=== PATIENT | male | born 1980 | race Caucasian/White ===

== ENCOUNTER 2021-10-17 15:04 | Outpatient (CLI) | payer OTHER, SELFPAY | END 2021-10-17 23:59 | disposition home or self-care (01) | PROVIDERS: PCP Family Medicine; Visit Provider Otolaryngology Otolaryngology/Facial Plastic Surgery | DX: J02.9 Acute pharyngitis, unspecified (principal) | CPT/HCPCS: 87070; 87635; 87804; U0003; U0005 ==

== ENCOUNTER 2021-12-03 23:00 | Outpatient (REF) | payer OTHER, SELFPAY ==
[2021-12-03 23:01] VITALS: BP 145/95; PULSE 99; RESP 16; TEMP 36.6; O2SAT 99; BMI 38.2
[2021-12-03 23:16] VITALS: PULSE 74; RESP 16; O2SAT 99
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
[2021-12-04 00:54] LABS: HIV - WCH Non-Reactive (Nonreactive); Hepatitis B Surface Antibody Reactive; Hepatitis B Surface Antigen Non-Reactive (Nonreactive); Hepatitis C Antibody Non-Reactive (Nonreactive)
== END 2021-12-03 23:47 | disposition home or self-care (01) ==
LOC: ED 23:00
PROVIDERS: PCP Family Medicine; Visit Provider Emergency Medicine
DX: Z77.21 Contact with and (suspected) exposure to potentially hazardous body fluids (principal); J45.909 Unspecified asthma, uncomplicated
CPT/HCPCS: 86703; 86706; 86803; 87340

== ENCOUNTER 2023-05-15 17:27 | Emergency (ER) | payer OTHER, SELFPAY ==
[2023-05-15 17:28] VITALS: BP 139/80; PULSE 94; RESP 14; TEMP 36.6; O2SAT 99; BMI 39.9
--- NOTE | 2023-05-15 19:26 | ED.VIS.LOWEX ---
HPI History of Present Illness Chief Complaint: Lower Extremity Injury Informant: patient Narrative Narrative: Patient is a 42-year-old male with no segment past medical history presenting with right hamstring injury. Patient was at football [employer] and was running on the field when he made it to the 50 yard line, stepped funny and then felt a pop in his right posterior thigh. He states he had pain trauma up from his right midfoot all the way up to his thigh. He states immediately after the injury he got dizzy and had to lay down for 10 to 20 minutes. After that he ate some lunch (he had not eaten yet), took 800 mg ibuprofen and applied ice. He notes its been feeling better since. He is quite concerned he might of tore his hamstring and was not sure what he should do next especially as he works as a real estate legal assistant. He initially went to urgent care however they told him he needed imaging and they could not provide it so they sent him to the emergency room. No other injuries or complaints. Denies any numbness or tingling at this time. [facility] Medical History Asthma Asthmatic bronchitis with acute exacerbation History of fracture of sternum History of rib fracture Home Medications albuterol sulfate 90 mcg/actuation aerosol inhaler 1 - 2 puff inhalation Q4H PRN PRN Sob &/Or Wheezing 06/21/17 [History Last Taken Unknown] dicyclomine 10 mg capsule 20 mg (2 x 10 mg) PO TIDAC #20 caps 06/21/17 [Rx Last Taken Unknown] methylprednisolone 4 mg tablets in a dose pack (Medrol (Mann)) See Rx Instructions PO PER PKG DIR #21 tabs 11/15/20 [Rx Last Taken Unknown] Allergy/AdvReac Type Severity Reaction Status Date / Time No Known Allergies Allergy Verified 05/15/23 17:28 Family History Other Arthritis CVA (cerebral vascular accident) Cancer Hypertension Melanoma Parkinson disease Surgical History History of tonsillectomy Social History Smoking Status: Never smoker ROS ROS ED Constitutional Constitutional ED: Denies chills or fever(s) Cardiovascular Cardiovascular: Denies chest pain Respiratory/Chest Respiratory/Chest: Denies dyspnea Gastrointestinal Gastrointestinal: Denies nausea or vomiting Musculoskeletal Musculoskeletal: Reports other Details: right thigh pain- posterior ; Denies back pain Integumentary Denies Abrasions or rash Neurologic Neurologic: Denies paresthesias or weakness Hematologic/Lymphatic Hematologic/Lymphatic: Denies easy bleeding or easy bruising EXAM Physical Exam Const Vital Signs: 05/15/23 17:28 Temperature 98 F Temperature Source Temporal Pulse Rate 94 Respiratory Rate 14 Blood Pressure 139/80 H Blood Pressure Mean 99 Pulse Ox 99 Oxygen Delivery Method Room Air HEENT normocephalic and atraumatic Chest Wall inspection of chest normal Resp normal respiratory effort and clear to auscultation bilaterally Cardio regular rate and regular rhythm Cardio Narrative: 2+ DP pulse Extremity full ROM Extremity Narrative: Right lower extremity?normal extensor mechanism Normal Fountain test. No bony tenderness throughout. Patient points to his proximal right posterior thigh as area of pain. When he stands up there is a slight bulge of muscle that is asymmetric from the left of the middle/distal thigh. It is not tender to palpation. Pain is worse with slight weakness with extension of the hip. Compartments are soft Neuro oriented x3, moves all extremities and no sensory deficits noted Sensorium / Orientation: alert Motor Exam: Negative for general weakness Psych mental status grossly normal Skin no wounds Rashes: no rashes MDM MDM MDM Narrative Medical decision making narrative: Patient evaluated for sudden onset of right posterior thigh pain. He does have a mild deformity of the posterior thigh but no irritating deficit/weakness. Pain seems to be controlled with ice and NSAIDs. Physical exam most consistent with hamstring sprain/tear. Due to his retained mobility doubt complete rupture. X-rays obtained which does not show any bony pull off or acute abnormality. Case is discussed with Ortho on-call, Dr. Juarez. He recommends Nicho wrap, ice and NSAIDs and follow-up in the office for likely physical therapy next week. Patient is informed of this. He verbalizes good understand this. Patient is neurovascular intact distally and has no other bony tenderness or abnormalities I do not think requires any further work-up at this time. He does not require an emergent MRI and I do not think there is utility for CT imaging at this time. Radiography Diagnostic Testing: Clinical Impression(s) from Imaging Studies Femur X-Ray 05/15/23 19:35 IMPRESSION: Negative. Electronically Signed: Fabián Dorsey DO at 19:59 EST Reading Location ID and State: [facility] / [place] Tel [phone], Service support , Discharge Plan Triage Chief Complaint: Lower Extremity Injury ED Provider: Abby Zarate Dx/Rx/DC Orders Clinical Impression: Hamstring injury Instructions: Treating?Strains and Sprains Prescriptions: No Action methylprednisolone [Medrol (Mann)] 4 mg tablets,dose pack See Rx Instructions PO PER PKG DIR Qty: 21 0RF Rx Instructions: PO PER PKG DIR albuterol sulfate 1 INHALER inhaler 1 - 2 puff INHALATION Q4H PRN PRN (Reason: Sob &/Or Wheezing) dicyclomine 10 MG capsule 20 mg PO TIDAC Qty: 20 0RF Primary Care Provider: Kristine Robertson Referrals: Mandeep Juarez DO [Med Staff - Active Staff] - 3-5 Days Kristine Robertson [employer] [Primary Care Provider] - Activity Restrictions/Additional Instructions: Wear Nicho wrap for comfort. Its not clear if you strained your hamstring versus have a complete tear. I will follow-up with orthopedics and likely physical therapy which will be arranged with orthopedics. Call the office on Thursday to be seen next week. Let them know that you were instructed by on-call Ortho from the ER for this plan. Continue to take ibuprofen (600 to 800 mg every 6 hours) for pain and inflammation. Continue to rest and ice. Wear Nicho wrap for comfort. Return to the ER if you have further concerns. Disposition Disposition: Home, Self Care
--- NOTE | 2023-05-15 19:35 | RAD_ITS ---
INDICATION: hamstring unjury, pain post thigh EXAMINATION/TECHNIQUE: X-RAY - RIGHT XR Femur 4 VIEWS COMPARISON: FINDINGS: SOFT TISSUES: No soft tissue swelling or gas. No radiopaque foreign body. BONES/JOINTS: No acute fracture or subluxation.. Normal alignment. Preservation of the joint space.. No sclerotic or destructive changes observed. RAD/Femur Min 2 Views IMPRESSION: Negative. Electronically Signed: Fabián Dorsey DO at 19:59 EST ,
== END 2023-05-15 20:46 | disposition home or self-care (01) ==
PROVIDERS: Emergency Provider Emergency Medicine; PCP Nurse Practitioner Family; Visit Provider Emergency Medicine
DX: S76.301A Unspecified injury of muscle, fascia and tendon of the posterior muscle group at thigh level, right thigh, initial encounter (principal); X58.XXXA Exposure to other specified factors, initial encounter; Y93.02 Activity, running; Y92.321 Football field as the place of occurrence of the external cause
CPT/HCPCS: 73552; 99282